=== PATIENT | male | born 1980 | race Caucasian/White ===

== ENCOUNTER 2018-05-03 05:44 | Emergency (ER) | payer MEDICAID ==
[~2018-05-03] VITALS: Ht 177.8 cm; Wt 82.1 kg
[2018-05-03] MEDS ORDERED: LORazepam 1MG TABLET PO ONE ×2 (06:00→07:30)
[2018-05-03] MEDS ORDERED: LIDOCAINE 2%, 20ML INFIL ONE (06:00)
[2018-05-03] MEDS ORDERED: LIDOCAINE-MPF 2%, 2ML ONE (06:14)
[2018-05-03] MEDS ORDERED: HYDR-3307 PO (06:18)
[2018-05-03] MEDS ORDERED: HYDROcodone/APAP 5/325 TABLET PO ONE (06:30)
[2018-05-03] MEDS ORDERED: HYDROcodone/APAP 5/325 TABLET ONE (06:42)
[2018-05-03 07:03] LABS: BASOPHILS # (AUTO) 0.06 x10^3/uL (0-0.1); BASOPHILS % (AUTO) 0 % (0-1); EOSINOPHILS % (AUTO) 0 % (1-7); LYMPHOCYTES # (AUTO) 1.06 x10^3/uL (1-3.4); LYMPHOCYTES % (AUTO) 8 % (22-44); MD NO; MEAN CORPUSCULAR HEMOGLOBIN 32.9 pg (27.5-34.5); MEAN CORPUSCULAR HGB CONC 34.3 g/dL (33.2-36.2); MEAN CORPUSCULAR VOLUME 95.9 fL (81-97); MEAN PLATELET VOLUME 7.5 fL (7.4-10.4); MONOCYTES # (AUTO) 0.27 x10^3/uL (0.2-0.8); MONOCYTES % (AUTO) 2 % (2-9); NEUTROPHILS % (AUTO) 90 % (42-75); PLATELET COUNT 306 x10^3/uL (130-400); RED BLOOD COUNT 5.38 x10^6/uL (4.38-5.82); RED CELL DISTRIBUTION WIDTH 12.2 % (9.4-14.8)
[2018-05-03 07:12] LABS: ALBUMIN 4.8 g/dL (3.4-5.0); ANION GAP 13 mmol/L (5-15); CALCIUM 8.8 mg/dL (8.5-10.1); CHLORIDE 107 mmol/L (98-107); CREATININE 1.37 mg/dL (0.7-1.3)
[2018-05-03] MEDS ORDERED: LORazepam 1MG TABLET ONE (07:28)
[2018-05-03] MEDS ORDERED: SODIUM CHLORIDE FLUSH 10ML SYR IVF ONE (07:30)
[2018-05-03] MEDS ORDERED: SODIUM CHLORIDE 0.9% 1,000ML IVBOLUS ONE ×2 (07:30→09:00)
[2018-05-03] MEDS ORDERED: LORazepam 2 MG/ML, 1ML IVPush ONE (09:00)
[2018-05-03] MEDS ORDERED: LORazepam 2 MG/ML, 1ML ONE (09:04)
[2018-05-03 09:35] VITALS: BP 130/93
[2018-05-03] MEDS ORDERED: BACITRACIN ZINC OINT 500U/GM, 0.9 GM ONE (10:38)
== END 2018-05-03 10:59 | disposition home or self-care (01) ==
LOC: ED 07:24
DX: S01.112A Laceration without foreign body of left eyelid and periocular area, initial encounter (principal); S16.1XXA Strain of muscle, fascia and tendon at neck level, initial encounter; S29.012A Strain of muscle and tendon of back wall of thorax, initial encounter; S39.012A Strain of muscle, fascia and tendon of lower back, initial encounter; S80.02XA Contusion of left knee, initial encounter; S80.12XA Contusion of left lower leg, initial encounter; G89.11 Acute pain due to trauma; F10.239 Alcohol dependence with withdrawal, unspecified; I10 Essential (primary) hypertension; X58.XXXA Exposure to other specified factors, initial encounter; Y93.89 Activity, other specified; Y92.410 Unspecified street and highway as the place of occurrence of the external cause; Y99.8 Other external cause status
CPT/HCPCS: 12013; 36415; 70450; 70486; 72072; 72110; 72125; 73564; 73590; 80048; 82040; 85025; 93005; 96374; 99285; J2060; J7030